=== PATIENT | female | born 1990 | race Caucasian/White ===

== ENCOUNTER 2018-02-16 10:49 | Inpatient (IN) | payer OTHER ==
[~2018-02-16] VITALS: Ht 182.9 cm; Wt 110.0 kg
[2018-03-02] VITALS (49 sets, daily range): BP systolic 105–142; BP diastolic 54–93; PULSE 17–123; TEMP 97.7–99.1
[2018-03-02] MEDS ORDERED: PRENATAL1 TA7 PO (07:46)
[2018-03-02 08:48] LABS: BASO % 0.5 % (0.0-2.0); EOS # 0.1 (0.0-0.7); EOS % 0.8 % (0-4.0); GRAN # 6.6 (1.4-6.5); GRAN % 76.4 % (42.2-75.2); HEMOGLOBIN 12.1 g/dl (12.5-16.0); LYMPH # 1.4 (1.2-3.4); LYMPH % 15.8 % (20.0-51.0); MEAN CELL VOLUME 90 fl (80.0-100.0); MEAN CORPUSCULAR HEMOGLOBIN 32 pg (27.0-31.0); MEAN CORPUSCULAR HGB CONC 35 g/dl (33.0-37.0); MEAN PLATELET VOLUME 9.4 fl (7.4-10.4); MONO # 0.5 (0.1-0.6); MONO % 5.8 % (1.7-9.3); PLATELET COUNT 185 K/mm3 (130-400); RED BLOOD COUNT 3.83 M/mm3 (4.10-5.30); REDCELL DISTRIBUTION WIDTH-CV 13.3 % (11.5-14.5)
[2018-03-02 08:52] LABS: HEMATOCRIT 34.5 % (37.0-47.0)
[2018-03-03 01:00] VITALS: BP 115/64; PULSE 88; TEMP 98
[2018-03-03 06:55] VITALS: BP 104/67; PULSE 80; TEMP 97.7
[2018-03-03] MEDS ORDERED: IBU800 M1 PO (13:00)
[2018-03-03] MEDS ORDERED: PERCOCET 325 MG1 TA2 PO (13:01)
[2018-03-03 16:30] VITALS: BP 119/78; PULSE 101; TEMP 97.8
[2018-03-03 20:30] VITALS: BP 121/74; PULSE 91; TEMP 98.9
[2018-03-04 07:00] VITALS: BP 120/81; PULSE 98; TEMP 97.6
== END 2018-03-04 09:45 | disposition home or self-care (01) | DRG 775 ==
LOC: OB 03-02 07:08 → LDR 03-02 07:08 → OB 03-02 20:13
PROVIDERS: Student in an Organized Health Care Education/Training Program
PROC: 10E0XZZ Delivery of Products of Conception, External Approach (ICD-10-PCS; principal; 2018-03-02)
PROC: 0UQMXZZ Repair Vulva, External Approach (ICD-10-PCS; 2018-03-02)
PROC: 3E033VJ Introduction of Other Hormone into Peripheral Vein, Percutaneous Approach (ICD-10-PCS; 2018-03-02)
PROC: 10907ZC Drainage of Amniotic Fluid, Therapeutic from Products of Conception, Via Natural or Artificial Opening (ICD-10-PCS; 2018-03-02)
DX: O14.04 Mild to moderate pre-eclampsia, complicating childbirth (principal); O60.14X0 Preterm labor third trimester with preterm delivery third trimester, not applicable or unspecified; O71.82 Other specified trauma to perineum and vulva; Z37.0 Single live birth; Z3A.37 37 weeks gestation of pregnancy
CPT/HCPCS: J2590; J2795; J7120